=== PATIENT | female | born 1990 | race Caucasian/White ===

== ENCOUNTER → 2018-03-26 10:31 | Outpatient (CLI) | payer BC, SELFPAY ==
--- NOTE | 2018-03-26 10:36 | US_ITS ---
US OB transvaginal HISTORY: ITS.REASON: US OB Dates ORDERING PHYSICIAN: Radhames Gibson MD PATIENT AGE: 27 years COMPARISON: None FINDINGS: An intrauterine gestational sac is present with a pole with a crown-rump length of 1.56cm correlating to gestational age of 8w0d. heart tones are present with an FHR of 167 bpm's. Yolk sac is noted. Adnexa: Adnexa. There is a small amount fluid in cul-de-sac IMPRESSION: Live intrauterine gestation at 8 weeks 0 days as described above. Estimated due date by Ultrasound is 11/05/2018
== END ==
PROVIDERS: PCP Family Medicine; Visit Provider Nurse Practitioner Obstetrics & Gynecology
DX: O26.841 Uterine size-date discrepancy, first trimester (principal)
CPT/HCPCS: 76817

== ENCOUNTER → 2018-03-31 15:14 | Outpatient (CLI) | payer BC, SELFPAY ==
[2018-03-31 16:12] LABS: Basophils % 0.4 % (0.1-2.0); Eosinophils % 0.6 % (0.1-12.0); Hematocrit 37.4 % (37.0-47.0); Hemoglobin 12.4 g/dL (12.2-16.2); Lymphocytes # 2.4 K/mm3 (0.7-4.5); Lymphocytes % 33.9 % (10-50); Mean Corpuscular HGB Conc 33.1 g/dL (31.8-35.4); Mean Corpuscular Hemoglobin 31.9 pg (27.0-31.2); Mean Corpuscular Volume 96.4 fl (81-99); Mean Platelet Volume 7.9 fl (7.4-10.4); Monocytes # 0.5 K/mm3 (0.1-1.0); Monocytes % 6.6 % (1.7-9.3); Neutrophils # 4.1 K/mm3 (1.8-7.8); Neutrophils % 58.4 % (37.0-80.0); Platelet Count 200 K/mm3 (142-424); Red Blood Count 3.88 M/mm3 (4.20-5.40); Red Cell Distribution Width 12.3 % (11.5-17.5)
[2018-04-02 09:17] LABS: Rapid Plasma Reagin Ab Titer Non Reactive (NonRea<1:1)
[2018-04-02 16:12] LABS: HIV Screen 4th Generation wRfx Non Reactive (Non Reactive); Hepatitis B Surface Antigen Negative (Negative); Hepatitis C Antibody 0.2 s/co ratio (0.0-0.9)
[2018-04-02 16:13] LABS: Rubella Antibodies, IgG 3.65 index (Immune >0.99)
== END ==
PROVIDERS: Visit Provider Nurse Practitioner Obstetrics & Gynecology
DX: Z34.90 Encounter for supervision of normal pregnancy, unspecified, unspecified trimester (principal)
CPT/HCPCS: 36415; 85025; 86592; 86703; 86762; 86850; 87340; 87380; G0432

== ENCOUNTER → 2018-06-21 14:18 | Outpatient (CLI) | payer BC, SELFPAY ==
--- NOTE | 2018-06-21 14:26 | US_ITS ---
US OB /maternal detail: INDICATION: ITS.REASON: US OB Complete ORDERING PHYSICIAN: Radhames Gibson MD PATIENT AGE: 28 years TECHNIQUE: ultrasound transabdominal scanning. COMPARISON: No previous relevant studies. FINDINGS: Single viable intrauterine gestation. Breech position. Placenta: Posterior placenta grade 1. There is average amount fluid. The cervix appears satisfactory. Closed and measuring 3 cm and is in length. Complete survey performed and was unremarkable on the submitted images as in PACS. No discrete anomalies identified on survey imaging by technologist. Active fetus. Three-vessel cord with satisfactory umbilical cord insertion. 4- chamber heart noted. Survey of brain & ventricles unremarkable. Face and neck survey unremarkable. Diaphragm and chest views unremarkable. Abdomen: Both kidneys noted and unremarkable. Stomach noted and satisfactory. Spine: Survey of the spine satisfactory with no anomalies identified nor imaged. Both arms and legs noted. Amniotic Fluid: Adequate. Maternal adnexa: No significant findings. Measurements: Average ultrasound age 20w3d. Gestational Age 20w3d. Estimated due date by ultrasound age 0611/05/2018. Estimated weight 363 grams. BPD = 20w2d OFD = 21w0d HC = 20w0d AC = 20w4d FL = 20w6d Growth Percentile= 53% Heart Rate = 149 Cerebellum = 21w0d Humerus = 20w6d HC/AC is 1.13(1.09-1.26). CI is 75% (70-86%). FL/BPD is 73%. FL/AC is 22%. IMPRESSION: There is a single live fetus which is in breech presentation. Average ultrasound age is 20 weeks and 3 days. Fetus is active. No anatomical anomalies apparent. All parameters correlate. Please see above for detail.
== END ==
PROVIDERS: PCP Family Medicine; Visit Provider Nurse Practitioner Obstetrics & Gynecology
DX: Z36.0 Encounter for antenatal screening for chromosomal anomalies (principal)
CPT/HCPCS: 76811

== ENCOUNTER → 2018-08-11 09:31 | Outpatient (CLI) | payer BC, SELFPAY ==
[2018-08-11 10:41] LABS: Glucose,Fasting 75 mg/dL (60-105)
[2018-08-11 11:41] LABS: Glucose 1 Hour 111 mg/dL (74-106)
== END ==
PROVIDERS: Visit Provider Nurse Practitioner Obstetrics & Gynecology
DX: Z34.90 Encounter for supervision of normal pregnancy, unspecified, unspecified trimester (principal)
CPT/HCPCS: 36415; 82951

== ENCOUNTER → 2018-10-12 09:30 | Outpatient (CLI) | payer BC, SELFPAY | PROVIDERS: Visit Provider Nurse Practitioner Obstetrics & Gynecology | DX: Z34.90 Encounter for supervision of normal pregnancy, unspecified, unspecified trimester (principal) | CPT/HCPCS: 86403 ==

== ENCOUNTER → 2018-10-26 11:36 | Outpatient (CLI) | payer BC, SELFPAY ==
--- NOTE | 2018-10-26 11:38 | US_ITS ---
US OB BPP w/Fet-Mat S/D: Indication: ITS.REASON: US OB BPP Growth- SGA ORDERING PHYSICIAN: Radhames Gibson MD PATIENT AGE: 28 years FINDINGS: The following parameters are obtained: Average ultrasound age is 38w1d. Estimated due date by ultrasound is 11/08/2018. Estimated weight is 3454 grams. This is 60th percentile BPD: 38w1d OFD: 40w0d HC: 37w4d AC: 38w5d FL: 38w1d heart rate: 140 bpm. HC/AC: 0.95 (0.92-1.05) Cephalic index: 81%(70-86%) FL/BPD: 79%(71-87%) FL/AC: 21%(20-24%) Amniotic fluid index: 13.5 cm Qualitative AFV: 2 breathing movements: 2 Gross body movements: 2 Tone: 2 Biophysical profile score: 8/8 Doppler evaluation of the umbilical artery: SD ratio: 2.6 Resistive index: 0.62 No obvious anomalies evident. Placenta: Posterior High, GR 2 Cervix: Appears closed and measures 3 cm IMPRESSION: There is a single live fetus which is in cephalic presentation with an average ultrasound age of 38 weeks and 1 day. Estimated weight is 3454 g which is 60th percentile. All parameters correlate. Biophysical profile is 8 of 8. Amniotic fluid volume is 13.5 cm. Umbilical artery evaluation is unremarkable. Placenta is posterior and grade 2.
== END ==
PROVIDERS: PCP Family Medicine; Visit Provider Nurse Practitioner Obstetrics & Gynecology
DX: O36.5990 Maternal care for other known or suspected poor fetal growth, unspecified trimester, not applicable or unspecified (principal)
CPT/HCPCS: 76811; 76819; 76820

== ENCOUNTER 2018-11-05 01:09 | Inpatient (IN) ==
[2018-11-05 01:41] LABS: Microscopic, Urine URINE MICROSCOPIC (MICROSCOPIC)
[2018-11-05 01:48] LABS: Appearance,Urine CLEAR (Clear); Bilirubin,Urine Negative (Negative); Blood, Urine Negative (Negative); Color,Urine YELLOW (Yellow); Glucose,Urine (UA) Negative (Negative); Ketones,Urine Negative (Negative); Leukocyte Esterase,Urine Negative (Negative); PH,Urine 6.5 (5.0-8.5); Protein,Urine Negative (Negative); Specific Gravity, Urine <= 1.005 (1.005-1.030); Urobilinogen,Urine 0.2 EU/dl (0.2)
[2018-11-05 02:03] LABS: Amphetamine/Metha Screen,Urine Negative ng/mL (<1000); Barbiturates Screen,Urine Negative ng/mL (<200); Benzodiazepines Screen,Urine Negative ng/mL (<200); Cannabinoid Screen,Urine Negative ng/mL (<50); Cocaine Screen,Urine Negative ng/mL (<300); Methadone Screen,Urine Negative ng/mL (<300); Opiate Screen,Urine Negative ng/mL (<300); Phencyclidine Screen,Urine Negative ng/mL (<25)
[2018-11-05 02:04] LABS: Amorphous Sediment,Urine Trace /lpf
[2018-11-05 02:27] LABS: Basophils % 0.2 % (0.1-2.0); Eosinophils # 0.1 K/mm3 (0.0-0.4); Eosinophils % 0.8 % (0.1-12.0); Hematocrit 35.9 % (37.0-47.0); Hemoglobin 11.4 g/dL (12.2-16.2); Lymphocytes # 3.2 K/mm3 (0.7-4.5); Mean Corpuscular HGB Conc 31.8 g/dL (31.8-35.4); Mean Corpuscular Volume 93.1 fl (81-99); Mean Platelet Volume 10.8 fl (7.4-10.4); Monocytes # 0.9 K/mm3 (0.1-1.0); Monocytes % 7.6 % (1.7-9.3); Neutrophils # 7.7 K/mm3 (1.8-7.8); Neutrophils % 64.5 % (37.0-80.0); Platelet Count 128 K/mm3 (142-424); Red Blood Count 3.86 M/mm3 (4.20-5.40)
--- NOTE | 2018-11-05 08:02 | Progress Note ---
Labor Note - Subjective: Date: 11/05/18 Time: 08:02 irregular contractions - Objective: NST:: Reactive Contractions:: every 4-5 minutes Cervical Dilation:: 3 Effacement:: 90% Station: -1 Membranes: spontaneously ruptured - Fetus: Monitoring?: Yes monitoring type:: Internal and External Comment:: I inserted an IUPC - Assessment: Labor progressing?: Yes Cephalopelvic disproportion?: No Patient Problems: All Active Problems Normal delivery (Acute) (Acute) - Plan: Anesthesia for epidural?: Yes Continue to labor down?: Yes Plan for ?: No Continue to monitor?: Yes Start pushing?: No
--- NOTE | 2018-11-05 08:02 | History & Physical Report ---
OB - H&P: HPI Antepartum - History of Present Illness Chief complaint: Spontaneous rupture of membranes History of present illness: She is a 28-year-old 1 para 0 at 40 weeks gestational age area she ruptured her membranes about 12:45 AM. - History of Present Criteria for establishing EDC:: LMP confirmed by 1st trimester US care: good care Ultrasounds: normal 1st trimester US, normal mid trimester US Obstetrical complications: none Medical complications: none - Labs Blood type: O (+) positive Rubella: immune RPR/VDRL: nonreactive GBS status: negative [facility] History I have reviewed the patient's past medical history: Yes *Have you ever received a pneumonia vaccine?: No *Have you received a flu vaccine this season?: No Laterality Cases: Bilateral: Tonsillectomy Other Surgeries: Yes: No Previous Surgery, Cholecystectomy. No: Amputation: No Fractures: No - *Social History Educational Level: Completed High School Smoking Status: Never smoker Alcohol Intake: never Substance Use Type: denies use *Occupational Status:: employed Housing: house Household Members: spouse *Travel in the last 8 weeks: None - Psychiatric History Expresses thoughts of harming self/others: None Suicide Plan Description: No Plan Family Hx:: No significant family history Para: 0 Review of Systems - Review of Systems Review of systems:: pertinent systems reviewed and negative unless documented below Meds Home Medications Medication Instructions Recorded Confirmed Type 1 tab PO DAILY 03/29/18 11/05/18 History vitamin,calcium,boiiskvn-wsum-akjku acid tablet Ferrous Sulfate 325 mg PO DAILY 11/05/18 11/05/18 History Allergies Allergy/AdvReac Type Severity Reaction Status Date / Time No Known Allergies Allergy Verified 11/03/18 10:11 OB - H&P: Exam - Physical Exam Vital signs: Temp Pulse Resp BP Pulse Ox 97.5 F L 72 18 106/67 L 99 11/05/18 04:33 11/05/18 04:33 11/05/18 04:33 11/05/18 04:33 11/05/18 04:33 - Constitutional no acute distress - Routine HEENT Exam Head: Present: normocephalic Eye: Present: EOMI, PERRL ENT: Present: mucous membranes moist - Routine Neck Exam Present: supple, full ROM - Routine Respiratory Exam Absent: accessory muscle use (good air entry bilaterally), respiratory distress, wheezes, crackles - Routine Cardiovascular Exam Present: RRR. Absent: murmur - Routine Abdominal Exam Present: soft, normoactive bowel sounds. Absent: tenderness, distended, guarding - Routine Rectal Exam Patient deferred: visual exam, digital exam - Routine Exam Patient deferred: external exam, groin exam, perineal exam - Routine Extremities Exam Present: full ROM. Absent: cyanosis, edema - Routine Skin Exam Present: intact. Absent: cyanosis - Routine Neurological Exam Present: alert, oriented X3 - Routine Psychiatric Exam Present: normal affect OB - Results - Labs Labs: Short CBC 11/05/18 Range/Units 02:10 WBC 12.0 H (4.8-10.8) K/mm3 Hgb 11.4 L (12.2-16.2) g/dL Hct 35.9 L (37.0-47.0) % Plt Count 128 L (142-424) K/mm3 Urine 11/05/18 Range/Units 01:30 Urine Color Yellow (Yellow) Urine Appearance Clear (Clear) Urine pH 6.5 (5.0-8.5) Ur Specific [place] [facility] <= 1.005 (1.005-1.030) Urine Protein Negative (Negative) Urine Glucose (UA) Negative (Negative) OB - A/P Antepartum (1) Normal delivery Current visit: Yes Status: Acute - Additional Plan Planning to breastfeed?: Yes Plan: expectant management Additional Information:: We have started her on IV oxytocin. I inserted an IUPC. She is 3 cm, 90% effaced and station -1. Nonstress test is reactive. Contractions are irregular
--- NOTE | 2018-11-05 08:14 | Progress Note ---
[facility] Anesthesia Checklist - Patient Identification Patient Identification: Arm Band, Verbal (Name & ) - Structural Data Admitted From: Home Planned Operative Procedure/s: Labor Epidural Consent for Planned Operative Procedure(s) Verified: Yes Verified Documents: Surgical Consent, History and Physical - Chart Verification Results Verified: CBC - Additional verifications Patient : Yes Anesthesia Reactions: No - Airway Assessment C-Spine Mobility Assessed: Yes TMJ Mobility Assessed: Yes Dentition: Good Dentition - Neurological Assessment Level of Consciousness: Awake, Alert, Appropriate, Follows Commands Hx Seizures: No Numbness or tingling in extremities: No - Anesthesia Plan Anesthesia Risk discussed: Yes Anesthesia Plan: Verified ASA Class: II Anesthesia Type: Epidural [facility] History I have reviewed the patient's past medical history: Yes *Have you ever received a pneumonia vaccine?: No *Have you received a flu vaccine this season?: No Laterality Cases: Bilateral: Tonsillectomy Other Surgeries: Yes: No Previous Surgery. No: Amputation: No Fractures: No - *Social History Educational Level: Completed High School Smoking Status: Never smoker Alcohol Intake: never Substance Use Type: denies use *Occupational Status:: employed Housing: house Household Members: spouse *Travel in the last 8 weeks: None - Psychiatric History Expresses thoughts of harming self/others: None Suicide Plan Description: No Plan Family Hx:: No significant family history Para: 0
--- NOTE | 2018-11-05 10:57 | Progress Note ---
Labor Note - Subjective: Date: 11/05/18 Time: 10:56 regular contraction - Objective: NST:: Reactive Contractions:: every 2-3 minutes Cervical Dilation:: 5 Effacement:: 100% Station: -1 Membranes: spontaneously ruptured - Fetus: Monitoring?: Yes monitoring type:: Internal and External - Assessment: Labor progressing?: Yes Cephalopelvic disproportion?: No Patient Problems: All Active Problems (Updated 11/05/18 @ 08:01 by Radhames Gibson MD) Normal delivery (Acute) (Acute) - Plan: Anesthesia for epidural?: Yes Continue to labor down?: Yes Plan for ?: No Additional information:: She continues to do well. She is progressing. Baby's head has come down and the cervix is 5 cm dilated. We will continue on.
--- NOTE | 2018-11-05 12:03 | Progress Note ---
Labor Note - Subjective: Date: 11/05/18 Time: 12:02 regular contraction - Objective: NST:: Reactive Contractions:: every 2-3 minutes Cervical Dilation:: 7-8 Effacement:: 100% Station: 0 Membranes: spontaneously ruptured - Fetus: Monitoring?: Yes monitoring type:: Internal and External - Assessment: Labor progressing?: Yes Cephalopelvic disproportion?: No Patient Problems: All Active Problems (Updated 11/05/18 @ 08:01 by Radhames Gibson MD) Normal delivery (Acute) (Acute) - Plan: Anesthesia for epidural?: Yes Continue to labor down?: Yes Plan for ?: No Continue to monitor?: Yes Start pushing?: No Comment:: She seems to be progressing well. We will continue to labor down.
--- NOTE | 2018-11-05 14:02 | Procedure Note ---
- Delivery Note Delivery Date:: 11/05/18 Delivery Time:: 13:47 Anesthesia Type: Epidural Was labor medically induced?: No Induction method: none delivered prior to 39 weeks?: No Justification for early elective delivery:: Active Labor Gender: Female at 1 minute: 8 at 5 minutes: 9 AF:: Clear LAC or MLE?: LAC Delivery Procedure:: She is a 28-year-old 1 para 0 at 40 weeks gestational age. She ruptured her membranes in the middle of the night and came in in early labor. She was started on IV oxytocin and under labor epidural progressed to full dilation. She delivered spontaneously a liveborn female child at 1:47 PM in the afternoon of November 05, 2018. On deliver the head the anterior shoulder then delivered followed by the rest of the infant's body atraumatically. The oropharynx and nasopharynx were bulb suction. The baby cried spontaneously. We allowed the cord to continue to pulsate for approximately 1 minute. The cord was doubly clamped and cut and the was placed on the mother's abdomen for further care. The nurses assigned Apgars of 8 at 1 minute and 9 at 5 minutes. We then obtained cord blood as well as cord pH. Using gentle traction on the cord and countertraction the fundus I was able to easily deliver the placenta intact. It had a normal three-vessel cord. There were no perineal or vaginal lacerations. She had a small left labial laceration was repaired with a single interrupted 3-0 Vicryl Rapide suture. She has O+ blood, she is rubella immune and was group B streptococcus negative. She plans to breast-feed. Her chief medical technologist is Dr. Guo. Estimated blood loss was approximately 400 cc. Laceration:: labial Placental Delivery Description: Spontaneous
[2018-11-06 06:36] LABS: Hematocrit 31.3 % (37.0-47.0); Hemoglobin 10.2 g/dL (12.2-16.2)
--- NOTE | 2018-11-06 11:16 | Progress Note ---
Internal Medicine - PN: Subj *Date: 11/06/18 *Time: 11:13 Interval history: She is doing very well this morning. She is eating and drinking and ambulating. She is breast-feeding. Her lochia is normal. Exam Vital signs and Labs for Last 24 Hours: Temp Pulse Resp BP Pulse Ox 97.7 F 70 16 100/59 L 97 11/06/18 05:02 11/06/18 05:02 11/06/18 05:02 11/06/18 05:02 11/06/18 05:02 Laboratory Results - last 24 hr 11/05/18 14:02: Cord ABG pH 7.23 L* 11/06/18 06:10: Hgb 10.2 L, Hct 31.3 L I & O for Last 24 hours: Intake & Output 11/03/18 11/04/18 11/05/18 11/06/18 11:59 11:59 11:59 11:59 Weight 172 lb - Constitutional no acute distress Assessment and Plan (1) Normal delivery Current visit: Yes Status: Acute Category: Medical Code(s): O80 - Encount er for full-term uncomplicated delivery - Assessment and plan all Dx Assessment and Plan for all problems:: She continues to do very well. We will plan to send her home tomorrow.
[2018-11-07 03:51] VITALS: BP 113/67
--- NOTE | 2018-11-07 10:41 | Discharge Summary ---
General - General Admission date:: 11/05/18 Discharge date: 11/07/18 HPI HPI: She is a 28-year-old 1 now para 1 who was 40 weeks gestational age. She came in with ruptured membranes. Hospital Course Hospital Course: She was started on IV oxytocin and under labor epidural progressed to full dilation. She delivered spontaneously a liveborn female child at 1:47 PM in the afternoon of November 05, 2018. The baby was a liveborn female child weighing 7 pounds 8 ounces and was 18-1/2 inches long. She had Apgars of 8 at 1 minute and 9 at 5 minutes. She has done well and has remained afebrile throughout her hospitalization. She is eating and drinking and ambulating. She is breast- feeding. Her lochia is normal. Her mental health social worker is Dr. Guo. She has O+ blood, she is rubella immune and was group B strep negative. She is discharged home to follow-up with me in approximately 2 weeks time. She will continue with her vitamins and iron. She will take asjo-aex-gndxhjk analgesics for any discomfort. Her condition on discharge is stable. Rhogam Administration: Not Indicated Objective Vital signs: Temp Pulse Resp BP Pulse Ox 97.8 F 80 16 113/67 97 11/07/18 03:30 11/07/18 03:30 11/07/18 03:30 11/07/18 03:30 11/07/18 03:30 no acute distress DS: Diagnosis - Discharge Diagnosis (1) Normal delivery Status: Acute Discharge Plan - Patient Discharge Instructions ACTIVITY: No heavy lifting DIET: continue same diet Additional Instructions: NO HEAVY LIFTING, NO DRIVING FOR 2 WEEKS, NOTHING IN THE VAGINA FOR 6 WEEKS. Patient Instructions: Depression, Hemorrhage, [facility] Post Discharge Instructions - Follow up Plan Follow up with: Radhames Gibson MD [Staff Physician] - (CALL THURSDAY TO SCHEDULE 2 WEEK FOLLOW UP APPOINTMENT.) Disposition: Home, Self-Prison Medications: Home Medications Medication Instructions Recorded Confirmed Type 1 tab PO DAILY 03/29/18 11/05/18 History vitamin,calcium,ltiagqgd-spwp-kmwpy acid tablet Ferrous Sulfate 325 mg PO DAILY 11/05/18 11/05/18 History Prescriptions/Medication Reconciliation: Continued vitamin,calcium,dquhxgct-gkqn-dtnmu acid tablet 1 tab PO DAILY Ferrous Sulfate 325 mg PO DAILY
== END 2018-11-07 11:20 | disposition home or self-care (01) | DRG 807 ==
LOC: OBOUT 01:09 → OB 01:22
PROVIDERS: ADMIT Obstetrics & Gynecology; ATTEND Nurse Practitioner Obstetrics & Gynecology
CPT/HCPCS: 36415; 59025; 80305; 81001; 82800; 84112; 85014; 85018; 85025; 86850; 94761; C1758; J2405

== ENCOUNTER 2020-06-02 09:51 | Emergency (ER) | payer BC, SELFPAY ==
[2020-06-02 09:55] VITALS: BP 125/95; PULSE 92; RESP 17; TEMP 36.5; O2SAT 100; BMI 27.3
--- NOTE | 2020-06-02 10:04 | HMH.EDUTC ---
[facility] [place] Disposition Clinical Impression: Viral syndrome, Exposure to COVID-19 virus Disposition: Home, Self-Care Condition on Discharge: Good Instructions: Preventing the Spread of Coronavirus Discharge Instructions Additional Instructions: Drink plenty of fluids. Take tylenol for pain or fever. Return if you begin to have difficulty breathing. Follow up with your regular doctor. GO TO THE ER FOR ANY WORSENING SYMPTOMS Referrals: Ahsan Clements MD [Primary Care Provider] - Time of Disposition: 10:09 Medical Decision Making - Medical Records Medical records reviewed: No: I reviewed the patient's medical records. - Jeremy Inquiry Pt receiving controlled substance: No Vital Signs: 06/02/20 09:55 06/02/20 10:06 Temperature 97.7 F 97.7 F Temperature Source Oral Pulse Rate 92 H Pulse Rate [Left Brachial] 92 H Respiratory Rate 17 17 Blood Pressure 125/95 H Blood Pressure [Left Arm] 125/95 H Blood Pressure Mean [Left Arm] 105 Blood Pressure Source [Left Arm] Automatic Cuff Blood Pressure Position [Left Arm] Sitting 02 Sat by Pulse Oximetry 100 Oxygen Delivery Method Room Air Orders (Tests/Meds): ORDERS Category Date Time Status Covid-19 Nasal PCR ([facility]) Routine Lab 06/02/20 10:00 Received [facility] [place] HPI - General Stated complaint: loss of taste and smell Time Seen by Provider: 06/02/20 10:04 - History of Present Illness Provider Complaint: She states that since yesterday she has lost her senses of smell and taste. She denies any other symptoms. - Related Data Home Medications Medication Instructions Recorded Confirmed prenat.vits,radha,gjh-ekag-gecxg 1 tab PO DAILY 03/29/18 12/23/18 Ferrous Sulfate 325 mg PO DAILY 11/05/18 12/23/18 Previous Rx's Medication Instructions Recorded norethindrone (contraceptive) 0.35 0.35 mg PO DAILY #28 tab 12/23/18 mg tablet Allergies Allergy/AdvReac Type Severity Reaction Status Date / Time No Known Allergies Allergy Verified 12/23/18 11:00 [facility] History - Hepatitis A Screen Attestation statement:: This patient has been screened for Hepatitis A risk factors. I have reviewed the patient's past medical history: Yes Medical History: Denies:: Seizures Laterality Cases: Bilateral: Tonsillectomy Other Surgeries: Yes: No Previous Surgery, Cholecystectomy. No: Amputation: No Fractures: No - Social History Smoking Status: Never smoker Alcohol Intake: never Substance Use Type: denies use Occupational Status: employed Housing: house Household Members: spouse Family Hx:: No significant family history ROS Obtained: Yes All systems reviewed & no additional complaints - Constitutional Constitutional: Reports system reviewed and no additional complaints, except as docu - Eyes Eyes: Reports system reviewed and no additional complaints, except as docu - ENT Ears, Nose, Mouth, and Throat: Reports system reviewed and no additional complaints, except as docu - Cardiovascular Cardiovascular: Reports system reviewed and no additional complaints, except as docu - Respiratory Respiratory: Reports system reviewed and no additional complaints, except as docu - Gastrointestinal Gastrointestingal: Reports: system reviewed and no additional complaints, except as docu Physical Exam - General General appearance: alert, in no apparent distress - Head Head exam: atraumatic, normocephalic, normal inspection - Eye Eye exam: Present: normal appearance, PERRL, EOMI - ENT ENT exam: Present: normal exam, normal oropharynx, mucous membranes moist, TM's normal bilaterally, normal external ear exam - Neck Neck exam: Present: normal inspection, full ROM, trachea midline. Absent: meningismus, lymphadenopathy - Chest Chest inspection: Present: normal inspection, symmetric chest wall rise. Absent: tenderness - Respiratory Respiratory exam: Present: normal lung sounds bilaterally. Absent: respiratory dis
[2020-06-02 10:06] VITALS: BP 125/95; PULSE 92; RESP 17; TEMP 36.5; O2SAT 100
--- NOTE | 2020-06-02 17:53 | PC.NURSE ---
PATIENT NOTIFIED OF POSITIVE COVID RESULTS
== END 2020-06-02 10:10 | disposition home or self-care (01) ==
PROVIDERS: Emergency Provider Nurse Practitioner Family; PCP Family Medicine
DX: U07.1 COVID-19 (principal)
CPT/HCPCS: 99202; G0463; U0003

== ENCOUNTER → 2020-07-27 10:01 | Outpatient (CLI) | payer BC, SELFPAY ==
--- NOTE | 2020-07-27 10:01 | US_ITS ---
PROCEDURE: US OB TRANSVAGINAL CLINICAL INDICATION: US OB TV for DATES COMPARISON: US OBBIOCOMP US OB BPP w/Fet-Mat S/D from 10/26/2018 FINDINGS: An intrauterine gestational sac is present with a pole with a crown-rump length of 2.55cm correlating to gestational age of 9weeks 3days. heart tones are present with an FHR of 176bpm. Yolk sac is noted. IMPRESSION: Live IUP at 9 weeks 3 days Estimated due date by Ultrasound is 02/26/2021 Dictated by: Agustín Pascal MD 07/27/2020 16:56 Agustín Pascal MD in OV 07/27/2020 16:56
== END ==
PROVIDERS: PCP Family Medicine; Visit Provider Nurse Practitioner Obstetrics & Gynecology
DX: O26.841 Uterine size-date discrepancy, first trimester (principal)
CPT/HCPCS: 76817

== ENCOUNTER → 2020-08-16 12:21 | Outpatient (CLI) | payer BC, SELFPAY ==
[2020-08-16 13:28] LABS: Basophils % 0.2 % (0.1-2.0); Eosinophils # 0.1 K/mm3 (0.0-0.4); Eosinophils % 0.9 % (0.1-12.0); Hematocrit 40.3 % (37.0-47.0); Hemoglobin 13.8 g/dL (12.2-16.2); Lymphocytes # 3.2 K/mm3 (0.7-4.5); Lymphocytes % 33.7 % (10-50); Mean Corpuscular HGB Conc 34.3 g/dL (31.8-35.4); Mean Corpuscular Hemoglobin 31.5 pg (27.0-31.2); Mean Corpuscular Volume 91.9 fl (81-99); Mean Platelet Volume 8.7 fl (7.4-10.4); Monocytes # 0.6 K/mm3 (0.1-1.0); Monocytes % 5.9 % (1.7-9.3); Neutrophils # 5.7 K/mm3 (1.8-7.8); Neutrophils % 59.2 % (37.0-80.0); Platelet Count 251 K/mm3 (142-424); Red Blood Count 4.38 M/mm3 (4.20-5.40); Red Cell Distribution Width 13.1 % (11.5-17.5); White Blood Count 9.6 K/mm3 (4.8-10.8)
[2020-08-18 08:14] LABS: HIV Screen 4th Generation wRfx Non Reactive (Non Reactive)
[2020-08-18 19:15] LABS: Hepatitis B Surface Antigen Negative (Negative); Hepatitis C Antibody <0.1 s/co ratio (0.0-0.9); Rapid Plasma Reagin Ab Titer Non Reactive (NonRea<1:1); Rubella Antibodies, IgG 4.19 index (Immune >0.99)
== END ==
PROVIDERS: Visit Provider Nurse Practitioner Obstetrics & Gynecology
DX: Z34.90 Encounter for supervision of normal pregnancy, unspecified, unspecified trimester (principal); Z3A.08 8 weeks gestation of pregnancy
CPT/HCPCS: 36415; 85025; 86592; 86703; 86762; 86850; 87340; 87380; G0432

== ENCOUNTER 2020-09-16 13:59 | Emergency (ER) | payer BC, SELFPAY ==
[2020-09-16 14:00] VITALS: BP 104/62; PULSE 109; RESP 18; TEMP 36.9; O2SAT 100; BMI 30.2
[2020-09-16 14:23] LABS: Microscopic, Urine URINE MICROSCOPIC (MICROSCOPIC)
[2020-09-16 14:25] LABS: Appearance,Urine CLEAR (Clear); Bilirubin,Urine Negative (Negative); Blood, Urine Negative (Negative); Color,Urine YELLOW (Yellow); Glucose,Urine (UA) Negative (Negative); Ketones,Urine 3+ (Negative); Leukocyte Esterase,Urine Negative (Negative); Nitrate,Urine Negative (Negative); PH,Urine 6.5 (5.0-8.5); Protein,Urine 1+ (Negative); Specific Gravity, Urine 1.025 (1.005-1.030)
[2020-09-16 14:27] LABS: Basophils % 0.2 % (0.1-2.0); Eosinophils # 0.1 K/mm3 (0.0-0.4); Eosinophils % 0.5 % (0.1-12.0); Hemoglobin 13.9 g/dL (12.2-16.2); Lymphocytes # 1.1 K/mm3 (0.7-4.5); Lymphocytes % 11.2 % (10-50); Mean Corpuscular HGB Conc 34.7 g/dL (31.8-35.4); Mean Corpuscular Hemoglobin 31.5 pg (27.0-31.2); Mean Corpuscular Volume 90.9 fl (81-99); Mean Platelet Volume 8.1 fl (7.4-10.4); Monocytes # 0.5 K/mm3 (0.1-1.0); Monocytes % 4.9 % (1.7-9.3); Neutrophils # 8.3 K/mm3 (1.8-7.8); Neutrophils % 83.2 % (37.0-80.0); Platelet Count 214 K/mm3 (142-424); White Blood Count 9.9 K/mm3 (4.8-10.8)
[2020-09-16 14:30] VITALS: BP 105/63; PULSE 91; O2SAT 98
[2020-09-16 14:33] LABS: Alanine Aminotransferase 13 U/L (12-78); Albumin/Globulin Ratio 1.3 (1.1-1.8); Alkaline Phosphatase 64 U/L (38-126); Anion Gap 10.2 mEq/L (5-15); Aspartate Amino Transferase 26 U/L (14-36); Bilirubin,Total 0.8 mg/dl (0.2-1.3); Blood Urea Nitrogen 5 mg/dl (7-17); Calcium 8.4 mg/dl (8.4-10.2); Carbon Dioxide 22 mmol/L (22.0-30.0); Chloride 105 mmol/L (98-107); Creatinine Clearance Estimated 240 mL/min (50-200); Estimated Glomerular Filt Rate 190 ml/min (>60); GFR (African American) 230 ML/MIN (>60); Globulin 3.2 g/dL (1.3-3.2); Glucose 90 mg/dl (74-100); Lipase 118 U/L (23-300); Potassium 3.2 mmoL/L (3.5-5.1); Sodium 134 mmol/L (136-145); Total Protein,Serum 7.2 g/dl (6.3-8.2)
[2020-09-16 14:34] LABS: Amorphous Sediment,Urine 1+ /lpf; Mucus,Urine 1+ /lpf
[2020-09-16 15:00] VITALS: BP 100/54; PULSE 87; O2SAT 100
[2020-09-16 15:30] VITALS: BP 99/56; PULSE 89; O2SAT 99
--- NOTE | 2020-09-16 15:59 | HMH.EDNVD ---
ED Disposition Clinical Impression: Gastritis Qualifiers: Gastritis type: superficial Chronicity: acute Gastritis bleeding: without bleeding Qualified Code(s): K29.00 - Acute gastritis without bleeding Qualifiers: Weeks of gestation: 17 weeks Qualified Code(s): Z3A.17 - 17 weeks gestation of Disposition: Home, Self-Care Condition on Discharge: Good Instructions: DI for Nausea -- Adult Prescriptions: Doxylamine/Pyridoxine HCl [Diclegis 10mg-10mg tablet] 1 tab PO BID #10 tablet.dr Transmission Status: Pending to [facility] Referrals: Ahsan Clements MD [Primary Care Provider] - - Critical Care Critical Care Time: No Attestation: On 09/16/20, the high probability of a clinically significant, sudden or life threatening deterioration of the following system(s) required my full and direct attention, intervention and personal management. The time I documented below is in addition to time spent performing reported procedures but includes the following listed in this critical care notation. Medical Decision Making - Medical Records Medical records reviewed: Yes: I reviewed the patient's medical records. - Jeremy Inquiry Pt receiving controlled substance: No Vital Signs: 09/16/20 14:00 09/16/20 14:30 Temperature 98.4 F Temperature Source Oral Pulse Rate 91 H Pulse Rate [Left Radial] 109 H Respiratory Rate 18 Blood Pressure 105/63 L Blood Pressure [Right Arm] 104/62 L Blood Pressure Mean [Right Arm] 76 Blood Pressure Source [Right Arm] Automatic Cuff Blood Pressure Position [Right Arm] Sitting 02 Sat by Pulse Oximetry 100 98 - Lab Data Lab Results 09/16/20 14:05: Urine Color Yellow, Urine Appearance Clear, Urine pH 6.5, Ur Specific [place] 1.025, Urine Protein 1+, Urine Glucose (UA) Negative, Urine Ketones 3+, Urine Blood Negative, Urine Nitrate Negative, Urine Bilirubin Negative, Urine Urobilinogen 1.0, Ur Leukocyte Esterase Negative, Urine RBC None, Urine WBC None, Ur Squamous Epith Cells 3-5, Amorphous Sediment 1+, Urine Bacteria None, Urine Mucus 1+ 09/16/20 14:05: WBC 9.9, RBC 4.40, Hgb 13.9, Hct 40.0, MCV 90.9, MCH 31.5 H, MCHC 34.7, RDW 13.0, Plt Count 214, MPV 8.1, Neut % (Auto) 83.2 H, Lymph % (Auto) 11.2, [place] % (Auto) 4.9, Eos % (Auto) 0.5, Baso % (Auto) 0.2, Neut # (Auto) 8.3 H, Lymph # (Auto) 1.1, [place] # (Auto) 0.5, Eos # (Auto) 0.1, Baso # (Auto) 0.0 09/16/20 14:05: Sodium 134 L, Potassium 3.2 L, Chloride 105, Carbon Dioxide 22, Anion Gap 10.2, BUN 5 L, Creatinine 0.40 L, Estimated Creat Clear 240, Estimated GFR 190, Est GFR ( Amer) 230, Glucose 90, Calcium 8.4, Total Bilirubin 0.8, AST 26, ALT 13, Alkaline Phosphatase 64, Total Protein 7.2, Albumin 4.0, Globulin 3.2, Albumin/Globulin Ratio 1.3, Lipase 118 Result diagrams: 09/16/20 14:05 09/16/20 14:05 Orders (Tests/Meds): ED MEDICATIONS Generic Name Dose Route Start Last Admin Trade Name Freq PRN Reason Stop Dose Admin Sodium Chloride 1,000 mls @ 999 mls/hr 09/16/20 15:30 09/16/20 15:29 Sod Chlor 0.9% 1000ml Bag IV 09/16/20 16:30 999 mls/hr .Q1H1M HELIO Administration Discontinued Medications Generic Name Dose Route Start Last Admin Trade Name Freq PRN Reason Stop Dose Admin Diphenhydramine HCl 25 mg 09/16/20 14:19 09/16/20 14:28 Diphenhydramine 50mg/Ml Vial IV 09/16/20 14:20 25 mg ONCE ONE Administration Sodium Chloride 1,000 mls @ 999 mls/hr 09/16/20 14:30 09/16/20 14:26 Sod Chlor 0.9% 1000ml Bag IV 09/16/20 15:30 999 mls/hr .Q1H1M HELIO Administration Promethazine HCl 25 mg 09/16/20 15:21 09/16/20 15:31 Promethazine Hcl 25mg/Ml 1ml Vial IV 09/16/20 15:22 25 mg ONCE ONE Administration Sodium Chloride 25 ml 09/16/20 15:21 09/16/20 15:31 Sodium Chloride 0.9% 25ml Bag IV 09/16/20 15:22 25 ml ONCE ONE Administration - Reevaluation(s) Time: 16:23 Reevaluation #1: On reevaluation, the patient is feeling much better. Repeat a
[2020-09-16 16:00] VITALS: BP 100/60; PULSE 87; O2SAT 100
--- NOTE | 2020-09-16 16:29 | PC.NURSE ---
heart tones 158
[2020-09-16 16:43] VITALS: BP 100/60; PULSE 87; RESP 18; TEMP 36.9; O2SAT 100
== END 2020-09-16 16:45 | disposition home or self-care (01) ==
PROVIDERS: Emergency Provider Emergency Medicine; PCP Family Medicine
DX: K29.00 Acute gastritis without bleeding (principal); Z3A.17 17 weeks gestation of pregnancy
CPT/HCPCS: 80053; 81001; 83690; 85025; 96365; 96366; 96375; 99281

== ENCOUNTER → 2020-10-10 12:54 | Outpatient (CLI) | payer BC, SELFPAY ==
--- NOTE | 2020-10-10 12:54 | US_ITS ---
PROCEDURE: US OB /MATERNAL DETAIL CLINICAL INDICATION: 20 weeks gestation Anatomy exam COMPARISON: US US OB TRANSVAGINAL from 07/27/2020 FINDINGS: There is a single live intrauterine gestation with an average ultrasound age of 20 weeks 3 days. Fetus is in cephalic presentation. The placenta is fundal and grade 1. There is an average amount of amniotic fluid. The cervix is closed and measures approximately 4 cm in length. Complete survey performed and was unremarkable on the submitted images as in PACS. No discrete anomalies identified on survey imaging by technologist. Active fetus. Three-vessel cord with satisfactory umbilical cord insertion. 4- chamber heart noted. Survey of brain & ventricles Unremarkable. Face and neck survey unremarkable. Diaphragm and chest views unremarkable. Abdomen: Both kidneys noted and unremarkable. Stomach noted and satisfactory. Spine: Survey of the spine satisfactory with no anomalies identified nor imaged. Both arms and legs noted. Amniotic Fluid: Adequate. Maternal adnexa: No significant findings. Measurements: Average ultrasound age 20weeks 3days. Gestational Age 20weeks 1day Estimated due date by ultrasound age 1002/24/2021. Estimated weight 351g BPD = 20weeks 6days OFD = 20weeks 2days HC = 19weeks 5days AC = 20weeks 5days FL = 20weeks 2days Growth Percentile= 60Percent% Heart Rate = 149bpm Cerebellum = 20weeks 4days Humerus = HC/AC is 1.11 CI is 0.83 FL/BPD is 0.67 FL/AC is 0.21 IMPRESSION: Live IUP in cephalic presentation at 20 weeks 3 days. No obvious anomalies. Please see above for detail Dictated by: Agustín Pascal MD 10/11/2020 07:56 Agustín Pascal MD in [place] 10/11/2020 07:56
== END ==
PROVIDERS: PCP Family Medicine; Visit Provider Nurse Practitioner Obstetrics & Gynecology
DX: Z34.90 Encounter for supervision of normal pregnancy, unspecified, unspecified trimester (principal); Z3A.20 20 weeks gestation of pregnancy
CPT/HCPCS: 76811

== ENCOUNTER → 2020-11-27 09:18 | Outpatient (CLI) | payer BC, SELFPAY ==
[2020-11-27 09:46] LABS: Glucose,Fasting 80 mg/dl (74-100)
[2020-11-27 11:15] LABS: Glucose 1 Hour 115 mg/dL (74-100)
== END ==
PROVIDERS: Visit Provider Nurse Practitioner Obstetrics & Gynecology
DX: Z34.91 Encounter for supervision of normal pregnancy, unspecified, first trimester (principal)
CPT/HCPCS: 36415; 82951

== ENCOUNTER → 2021-01-23 17:46 | Outpatient (CLI) | payer BC, SELFPAY | PROVIDERS: Visit Provider Nurse Practitioner Obstetrics & Gynecology | DX: Z34.90 Encounter for supervision of normal pregnancy, unspecified, unspecified trimester (principal) | CPT/HCPCS: 86403 ==

== ENCOUNTER 2021-02-25 03:38 | Inpatient (IN) | payer BC, SELFPAY ==
[2021-02-25 03:44] VITALS: BMI 34.4
[2021-02-25 04:00] VITALS: BP 82/51; PULSE 82; RESP 18; TEMP 37.1; O2SAT 99; BMI 34.4
[2021-02-25 04:50] LABS: Basophils # 0.1 K/mm3 (0-0.2); Basophils % 0.6 % (0.1-2.0); Eosinophils # 0.1 K/mm3 (0.0-0.4); Eosinophils % 0.7 % (0.1-12.0); Hematocrit 37.7 % (37.0-47.0); Hemoglobin 12.9 g/dL (12.2-16.2); Lymphocytes # 3.1 K/mm3 (0.7-4.5); Lymphocytes % 28.6 % (10-50); Mean Corpuscular HGB Conc 34.2 g/dL (31.8-35.4); Mean Corpuscular Hemoglobin 32.7 pg (27.0-31.2); Mean Corpuscular Volume 95.6 fl (81-99); Mean Platelet Volume 11.3 fl (7.4-10.4); Monocytes # 0.7 K/mm3 (0.1-1.0); Monocytes % 6.8 % (1.7-9.3); Neutrophils # 6.8 K/mm3 (1.8-7.8); Neutrophils % 63.3 % (37.0-80.0); Platelet Count 154 K/mm3 (142-424); Red Blood Count 3.94 M/mm3 (4.20-5.40); Red Cell Distribution Width 13.5 % (11.5-17.5); White Blood Count 10.7 K/mm3 (4.8-10.8)
[2021-02-25 04:51] LABS: Influenza A, PCR Not Detected (NotDetected); Influenza B, PCR Not Detected (NotDetected)
[2021-02-25 04:51] LABS: Microscopic, Urine URINE MICROSCOPIC (MICROSCOPIC)
[2021-02-25 04:58] LABS: Appearance,Urine CLEAR (Clear); Bilirubin,Urine Negative (Negative); Blood, Urine Negative (Negative); Color,Urine YELLOW (Yellow); Glucose,Urine (UA) Negative (Negative); Ketones,Urine TRACE (Negative); Leukocyte Esterase,Urine Negative (Negative); Nitrate,Urine Negative (Negative); Protein,Urine Negative (Negative); Specific Gravity, Urine 1.015 (1.005-1.030); Urobilinogen,Urine 0.2 EU/dl (0.2)
[2021-02-25 05:16] LABS: Coronavirus 19, PCR Detected (NotDetected)
--- NOTE | 2021-02-25 07:11 | HMH.PHAINT ---
MEDICATION RECONCILIATION COMPLETE USING PREVIOUS DISCHARGE INFO
[2021-02-25 08:03] VITALS: BP 119/67; PULSE 77; RESP 18; TEMP 36.7; O2SAT 98
--- NOTE | 2021-02-25 08:48 | HMH.ANESCL ---
[facility] Anesthesia Checklist - Patient Identification Patient Identification: Arm Band - Structural Data Admitted From: Inpatient Planned Operative Procedure/s: labor epidural Consent for Planned Operative Procedure(s) Verified: Yes Verified Documents: Surgical Consent, History and Physical - NPO Status Verified Time NPO: 00:00 - Additional verifications Anesthesia Reactions: No - Airway Assessment C-Spine Mobility Assessed: Yes TMJ Mobility Assessed: Yes Dentition: Good Dentition - Neurological Assessment Level of Consciousness: Awake, Alert - Anesthesia Plan Anesthesia Risk discussed: Yes Anesthesia Plan: Verified ASA Class: II Anesthesia Type: Epidural [facility] History I have reviewed the patient's past medical history: Yes Medical History: Denies:: Seizures *Have you ever received a pneumonia vaccine?: No *Have you received a flu vaccine this season?: No Anesthesia experience/problems:: nac Laterality Cases: Bilateral: Tonsillectomy Other Surgeries: Yes: Cholecystectomy. No: Amputation: No Fractures: No - *Social History Smoking Status: Never smoker Alcohol Intake: never Alcohol Intake Frequency:: other Substance Use Type: denies use *Occupational Status:: employed Housing: house Household Members: spouse *Travel in the last 8 weeks: None Family Hx:: No significant family history Para: 1
--- NOTE | 2021-02-25 10:29 | HMH.HP ---
*Admission Date: 02/25/21 *Chief complaint: Induction of labor *History of present illness: 30 yo @ 39 10/22 for induction of labor care at [facility] with Dr. Gibson; uncomplicated Covid positive on admission this am; no respiratory symptoms or fever [facility] History I have reviewed the patient's past medical history: Yes Medical History: Denies:: Seizures *Have you ever received a pneumonia vaccine?: No *Have you received a flu vaccine this season?: No Anesthesia experience/problems:: nac Laterality Cases: Bilateral: Tonsillectomy Other Surgeries: Yes: No Previous Surgery, Cholecystectomy. No: Amputation: No Fractures: No - *Social History Smoking Status: Never smoker Alcohol Intake: never Alcohol Intake Frequency:: other Substance Use Type: denies use *Occupational Status:: employed Housing: house Household Members: spouse *Travel in the last 8 weeks: None Family Hx:: No significant family history : 2 Para: 1 Review of Systems - Review of Systems Review of systems:: pertinent systems reviewed and negative unless documented below - Constitutional Denies chills, Denies fever(s) - *Respiratory Denies cough, Denies shortness of breath - *Genitourinary Denies abnormal vaginal bleeding Meds Home Medications Medication Instructions Recorded Confirmed Type prenat.vits,radha,[id number] 1 tab PO DAILY 03/29/18 02/25/21 History Doxylamine Succinate/Vit B6 1 each PO BID 02/25/21 02/25/21 History [Doxylamine-Pyridoxine 10-10 mg] Ferrous Sulfate 325 mg PO DAILY 02/25/21 02/25/21 History Allergies Allergy/AdvReac Type Severity Reaction Status Date / Time No Known Allergies Allergy Verified 02/21/21 09:54 Exam Vital signs and Labs for Last 24 Hours: Temp Pulse Resp BP Pulse Ox 98.0 F 77 18 119/67 98 02/25/21 08:03 02/25/21 08:03 02/25/21 08:03 02/25/21 08:03 02/25/21 08:03 Laboratory Results - last 24 hr 02/25/21 03:55: Urine Color Yellow, Urine Appearance Clear, Urine pH 7.0, Ur Specific [place] 1.015, Urine Protein Negative, Urine Glucose (UA) Negative, Urine Ketones Trace, Urine Blood Negative, Urine Nitrate Negative, Urine Bilirubin Negative, Urine Urobilinogen 0.2, Ur Leukocyte Esterase Negative, Urine WBC 3-5, Ur Squamous Epith Cells 5-10 02/25/21 04:40: WBC 10.7, RBC 3.94 L, Hgb 12.9, Hct 37.7, MCV 95.6, MCH 32.7 H, MCHC 34.2, RDW 13.5, Plt Count 154, MPV 11.3 H, Neut % (Auto) 63.3, Lymph % (Auto) 28.6, [place] % (Auto) 6.8, Eos % (Auto) 0.7, Baso % (Auto) 0.6, Neut # (Auto) 6.8, Lymph # (Auto) 3.1, [place] # (Auto) 0.7, Eos # (Auto) 0.1, Baso # (Auto) 0.1 02/25/21 04:40: Blood Type O Positive, Antibody Screen Negative 02/25/21 04:40: SARS-CoV-2 (PCR) Detected A, Influenza A Untype (PCR) Not detected, Influenza Type B (PCR) Not detected I & O for Last 24 hours: Intake & Output 02/22/21 02/23/21 02/24/21 02/25/21 11:59 11:59 11:59 11:59 Weight 182 lb - Constitutional no acute distress - *Routine HEENT Exam Head: Present: normocephalic Eye: Absent: conjunctival icterus ENT: Present: mucous membranes moist - *Routine Neck Exam Present: supple. Absent: lymphadenopathy - *Routine Respiratory Exam Present: CTA bilaterally. Absent: respiratory distress - *Routine Cardiovascular Exam Present: RRR - *Routine Abdominal Exam Present: soft. Absent: tenderness, distended - *Routine Rectal Exam Rectal:: deferred - *Routine Genitalia Exam Genitalia:: normal female Comment:: cervix 5/75/0 AROM- clear fluid - *Routine Extremities Exam Absent: cyanosis, clubbing, edema - *Routine Skin Exam Present: warm. Absent: rash - *Routine Neurological Exam Present: alert, oriented X3 Assessment and Plan (1) 39 weeks gestation of Status: Acute Category: Medical Code(s): Z3A.39 - 39 weeks gestation of (2) COVID-19 affecting , antepartum Status: Acute Category: Medical Code(s):
[2021-02-25 12:07] VITALS: BP 113/66; PULSE 83; RESP 16; TEMP 36.8
--- NOTE | 2021-02-25 13:33 | HMH.DN ---
- Delivery Note Delivery Date:: 02/25/21 Delivery Time:: 11:00 Anesthesia Type: Epidural Was labor medically induced?: Yes Induction method: per pitocin protocol Gestational age (weeks): 39 delivered prior to 39 weeks?: No at 1 minute: 8 at 5 minutes: 9 Delivery Procedure:: Spontaneous vaginal delivery of liveborn male over intact perineum. Delivery uncomplicated No nuchal cord; no shoulder dystocia with delivery placed in ELDER with mother immediately after umbilical cord clamped/cut, with standard nursing assessment performed Infant Apgars: 8 & 9 Placenta spontaneously expressed and examined; noted to be complete/intact. Vulva, vagina, and cervix inspected EBL: 300 cc All sponge/needle/instrument counts correct at conclusion of procedure Disposition: Mom/baby stable to recovery in LDRP Placental Delivery Description: Spontaneous
[2021-02-25 15:11] VITALS: BP 104/54; PULSE 77; RESP 18; TEMP 36.8; O2SAT 98
[2021-02-25 18:33] LABS: Amphetamine/Metha Screen,Urine Negative ng/ml (<1000); Benzodiazepines Screen,Urine Negative ng/ml (<200); Cocaine Screen,Urine Negative ng/ml (<300); Methadone Screen,Urine Negative ng/ml (<300)
[2021-02-25 18:36] LABS: Barbiturates Screen,Urine Negative ng/ml (<200); Opiate Screen,Urine Negative ng/ml (<300); Phencyclidine Screen,Urine Negative ng/ml (<25)
[2021-02-25 18:39] LABS: Cannabinoid Screen,Urine Negative ng/ml (<50)
[2021-02-25 20:05] VITALS: BP 123/62; PULSE 87; RESP 18; TEMP 36.9; O2SAT 98
[2021-02-26 04:10] VITALS: BP 112/65; PULSE 70; RESP 18; TEMP 36.6; O2SAT 99
[2021-02-26 07:09] LABS: Hematocrit 33.5 % (37.0-47.0); Hemoglobin 11.2 g/dL (12.2-16.2)
--- NOTE | 2021-02-27 08:19 | HMH.OBDCSM ---
General - General Admission date:: 02/25/21 Discharge date: 02/27/21 HPI - History of Present Illness History of present illness: She is a 30-year-old 2 para 1 at 39 and 6 weeks gestational age. She was brought in for induction of labor at term Hospital Course Hospital Course: Started on IV oxytocin had her membranes ruptured. She progressed to full dilation and delivered spontaneously a liveborn child at 1:00 in the afternoon of February 25, 2021. He was a liveborn male child weighing 8 pounds 12 ounces with Apgars of 8 at 1 minute and 9 at 5 minutes. She is breast-feeding. She has done well and has remained afebrile throughout her hospitalization. She is eating and drinking and ambulating. She is breast-feeding. Her lochia is normal. Her spring coiler hand is Dr. Neville. She has O+ blood, she is rubella immune and was group B streptococcus negative. She is to follow-up with me in approximately 2 weeks time. She was given the usual instructions with respect to limiting her activity, driving and sexual activity. She will continue with her vitamins and iron. Discharge is stable and improved. Rhogam Administration: Not Indicated Objective Vital signs: Temp Pulse Resp BP Pulse Ox 97.9 F 70 18 112/65 99 02/26/21 04:10 02/26/21 04:10 02/26/21 04:10 02/26/21 04:10 02/26/21 04:10 no acute distress - *Routine HEENT Exam Head: Present: normocephalic Eye: Present: EOMI, PERRL ENT: Present: mucous membranes moist DS: Diagnosis - Discharge Diagnosis (1) 39 weeks gestation of Status: Acute (2) COVID-19 affecting , antepartum Status: Acute Discharge Plan - Patient Discharge Instructions ACTIVITY: No heavy lifting DIET: continue same diet Additional Instructions: No heavy lifting, no strenuous activity, and nothing in the vagina for 6 weeks. Patient Instructions: Depression, Hemorrhage, DI for Labor and Delivery, Vaginal , DI for Pre-eclampsia, [facility] Post Discharge Instructions, Preventing the Spread of Coronavirus Discharge Instructions - Follow up Plan Follow up with: Radhames Gibson MD [Staff Physician] - Disposition: Home, Self-Care Condition at discharge:: Stable Home Medications: Home Medications Medication Instructions Recorded Confirmed Type prenat.vits,radha,[id number] 1 tab PO DAILY 03/29/18 02/25/21 History Doxylamine Succinate/Vit B6 1 each PO BID 02/25/21 02/25/21 History [Doxylamine-Pyridoxine 10-10 mg] Ferrous Sulfate 325 mg PO DAILY 02/25/21 02/25/21 History Prescriptions/Medication Reconciliation: Continued prenat.vits,radha,[id number] 1 tab PO DAILY Ferrous Sulfate 325 mg PO DAILY Doxylamine Succinate/Vit B6 [Doxylamine-Pyridoxine 10-10 mg] 1 each PO BID - Problem Reconciliation Problems Reviewed?: Yes
--- NOTE | 2021-02-27 08:22 | HMH.ACPN2 ---
Internal Medicine - PN: Subj *Date: 02/26/21 *Time: 16:00 Interval history: She is 1 day . She is eating and drinking and ambulating. She is breast-feeding. Her lochia is normal. Exam Vital signs and Labs for Last 24 Hours: Temp Pulse Resp BP Pulse Ox 97.9 F 70 18 112/65 99 02/26/21 04:10 02/26/21 04:10 02/26/21 04:10 02/26/21 04:10 02/26/21 04:10 I & O for Last 24 hours: Intake & Output 02/24/21 02/25/21 02/26/21 02/27/21 11:59 11:59 11:59 11:59 Weight 182 lb - Constitutional no acute distress - *Routine HEENT Exam Head: Present: normocephalic Eye: Present: EOMI, PERRL ENT: Present: mucous membranes moist Assessment and Plan (1) 39 weeks gestation of Status: Acute Category: Medical Code(s): Z3A.39 - 39 weeks gestation of (2) COVID-19 affecting , antepartum Status: Acute Category: Medical Code(s): O98.519 - Other viral diseases complicating , unspecified trimester; U07.1 - COVID-19 - Assessment and plan all Dx Assessment and Plan for all problems:: Very well. We will plan to send her home tomorrow.
== END 2021-02-27 09:25 | disposition home or self-care (01) | DRG 805 ==
PROVIDERS: Admitting Provider Obstetrics & Gynecology; PCP Family Medicine; Visit Provider Obstetrics & Gynecology
DX: O98.513 Other viral diseases complicating pregnancy, third trimester (principal); U07.1 COVID-19; Z37.0 Single live birth; Z3A.39 39 weeks gestation of pregnancy
CPT/HCPCS: 59409; 36415; 59025; 80305; 81001; 85014; 85018; 85025; 86850; 94761; C9803; G0283; U0003; U0005

== ENCOUNTER 2024-01-26 10:17 | Outpatient (POV) | payer BC, SELFPAY | END 2024-01-26 23:59 | disposition home or self-care (01) | LOC: SC 10:18 | PROVIDERS: PCP Internal Medicine Adolescent Medicine; Visit Provider Dermatology | DX: Z00.00 Encounter for general adult medical examination without abnormal findings (principal) ==